=== PATIENT | female | born 1995 | race Two or more races ===

== ENCOUNTER 2025-05-30 14:07 | Emergency (ER) | payer OTHER ==
[~2025-05-30] VITALS: Ht 160 cm; Wt 113.4 kg
[2025-05-30 14:07] VITALS: BP 130/77
[2025-05-30 14:45] LABS: *BILIRUBIN,URIN NEGATIVE (NEGATIVE); *BLOOD, URINE 3+ (NEGATIVE); *COLOR,URINE YELLOW (YELLOW); *KETONES,URINE NEGATIVE (NEGATIVE); *PROTEIN,URINE 1+ (NEGATIVE); *UROBILINOGEN,URINE 0.2 E.U./dl (NORMAL); LEUKOCYTE ESTERASE ,URINE TRACE (NEGATIVE); NITRITE, URINE NEGATIVE (NEGATIVE); UGLUCOSE NEGATIVE (NEGATIVE)
[2025-05-30 14:46] LABS: *CLARITY,URINE HAZY (CLEAR)
[2025-05-30 14:58] LABS: PLATELET COUNT (AUTO) 298 K/uL (179-408); RED BLOOD CELL COUNT(AUTO) 4.68 MIL/uL (3.63-4.92); RED CELL DISTRIBUTION WIDTH 15.4 % (12.3-17.7); WHITE BLOOD COUNT (AUTO) 8.9 K/uL (3.8-11.8)
[2025-05-30 15:04] LABS: SQUAMOUS EPITHELIAL CELL,UR MODERATE /HPF (NONE SEEN)
[2025-05-30 15:04] LABS: CREATININE 0.5 mg/dL (0.6-1.3); SODIUM SERUM 139 mmol/L (136-145); UREA NITROGEN, BLOOD 8 mg/dL (7-18)
[2025-05-30 15:10] LABS: ASPARTATE AMINOTRANSFERASE 35 U/L (15-37); TOTAL PROTEIN, SERUM 8.2 g/dL (6.4-8.2)
[2025-05-30 15:20] LABS: PREGNANCY TEST SERUM QUAN < 1 miul/L (0-6)
[2025-05-30] MEDS ORDERED: FLAS1KIT2 TP (17:19)
[2025-05-30] MEDS ORDERED: FLAS1EAC2 TP (17:19)
[2025-05-30 17:25] VITALS: BP 130/77; O2SAT 97
== END 2025-05-30 17:25 | disposition home or self-care (01) ==
LOC: ER 14:08
DX: O20.9 Hemorrhage in early pregnancy, unspecified (principal); O99.281 Endocrine, nutritional and metabolic diseases complicating pregnancy, first trimester; E74.02 Pompe disease; E88.810 Metabolic syndrome; R10.20 Pelvic and perineal pain unspecified side; Z91.040 Latex allergy status; Z3A.01 Less than 8 weeks gestation of pregnancy
CPT/HCPCS: 36415; 76856; 85025; 87086; A4606; A4663